=== PATIENT | female | born 1955 | race Native Hawaiian/Other Pacific Islander ===

== ENCOUNTER 2017-01-27 10:47 | Emergency (ER) | payer OTHER ==
[~2017-01-27] VITALS: Ht 167.6 cm; Wt 72.7 kg
[2017-01-27 11:10] VITALS: BP 180/76; PULSE 87; RESP 16; TEMP 98.4; O2SAT 100
--- NOTE | 2017-01-27 11:18 | PD ---
HPI Chief Complaint: Psychiatric Symptoms Time Seen by Provider: 11:13 Travel History International Travel<30 days: No Contact w/Intl Traveler<30days: No Traveled to known affect area: No History of Present Illness HPI 61 year-old female history of anxiety and depression presents to the emergency department under Onofre act for psychiatric evaluation. Patient states that her gave her an ultimatum and she gave him one. She states she was just talking with him and threatening him that she would jump off a bridge, but she did not mean this. She has no suicidal or homicidal ideations. No history suicide attempt. States that she was upset. No other symptoms to report [facility] Past Medical History Anxiety: Yes ?: Not Social History Alcohol Use: No Tobacco Use: No Substance Use: No Allergies-Medications (Allergen,Severity, Reaction): Coded Allergies: No Known Allergies (Unverified , 01/27/17) Reported Meds & Prescriptions Reported Meds & Active Scripts Active Reported Novolog Flexpen Inj (Insulin Aspart) 300 Unit/3 Ml Pen 1 Units SQ Tresiba Flextouch Pen Inj (Insulin Degludec Inj) 600 unit/3 ML Pen 1 Units SQ Atenolol 50 Mg Tab 50 Mg PO BID Norvasc (Amlodipine Besylate) 5 Mg Tab 5 Mg PO DAILY Lisinopril 10 Mg Tab 10 Mg PO DAILY Review of Systems Except as stated in HPI: all other systems reviewed are Neg Physical Exam Narrative GENERAL: Well-nourished, well-developed female patient in no acute distress SKIN: Focused skin assessment warm/dry. Patient has some perioral discoloration , dermatitis, dryness HEAD: Normocephalic. EYES: No scleral icterus. No injection or drainage. NECK: Supple, trachea midline. No JVD or lymphadenopathy. CARDIOVASCULAR: Regular rate and rhythm without murmurs, gallops, or rubs. RESPIRATORY: Breath sounds equal bilaterally. No accessory muscle use. GASTROINTESTINAL: Abdomen soft, non-tender, nondistended. MUSCULOSKELETAL: No cyanosis, or edema. BACK: Nontender without obvious deformity. No CVA tenderness. Data Data Last Documented VS Vital Signs Date Time Temp Pulse Resp B/P (MAP) Pulse Ox O2 Delivery O2 Flow Rate FiO2 01/27/17 16:29 01/27/17 15:34 84 18 98 Room Air 01/27/17 11:10 98.4 Orders Orders Complete Blood Count With Diff (9/12/17 11:17) Basic Metabolic Panel (Bmp) (01/27/17 11:17) Psych Screen (01/27/17 11:17) Drug Screen, Random Urine (01/27/17 11:17) Alcohol (Ethanol) (01/27/17 11:17) Diet Diabetic (01/27/17 Lunch) Psychiatric Precautions-Hbs (01/27/17 12:28) Labs Laboratory Tests Test 01/27/17 11:30 White Blood Count 3.7 TH/MM3 Red Blood Count 4.22 MIL/MM3 Hemoglobin 11.6 GM/DL Hematocrit 34.6 % Mean Corpuscular Volume 82.0 FL Mean Corpuscular Hemoglobin 27.6 PG Mean Corpuscular Hemoglobin Concent 33.7 % Red Cell Distribution Width 14.6 % Platelet Count 233 TH/MM3 Mean Platelet Volume 8.2 FL Neutrophils (%) (Auto) 64.1 % Lymphocytes (%) (Auto) 23.6 % Monocytes (%) (Auto) 11.3 % Eosinophils (%) (Auto) 0.5 % Basophils (%) (Auto) 0.5 % Neutrophils # (Auto) 2.4 TH/MM3 Lymphocytes # (Auto) 0.9 TH/MM3 Monocytes # (Auto) 0.4 TH/MM3 Eosinophils # (Auto) 0.0 TH/MM3 Basophils # (Auto) 0.0 TH/MM3 CBC Comment DIFF FINAL Differential Comment Blood Urea Nitrogen 17 MG/DL Creatinine 1.09 MG/DL Random Glucose 132 MG/DL Calcium Level 8.4 MG/DL Sodium Level 134 MEQ/L Potassium Level 3.8 MEQ/L Chloride Level 102 MEQ/L Carbon Dioxide Level 25.3 MEQ/L Anion Gap 7 MEQ/L Estimat Glomerular Filtration Rate 51 ML/MIN Urine Opiates Screen NEG Urine Barbiturates Screen POS Urine Amphetamines Screen NEG Urine Benzodiazepines Screen POS Urine Cocaine Screen NEG Urine Cannabinoids Screen NEG Ethyl Alcohol Level LESS THAN 3 MG/DL MDM Medical Decision Making Medical Screen Exam Complete: Yes Emergency Medical Condition: Yes Medical Record Reviewed: Yes Differential Diagnosis Mood disorder versus personality disorder versus adjustment reaction disorder Narrative Course 61 year-old female presents to the emergency department for evaluation under Onofre. Patient appears without distress. She is tearful and states that she did not mean which she said to her that she was only upset. Laboratory Tests Test 01/27/17 11:30 White Blood Count 3.7 TH/MM3 Red Blood Count 4.22 MIL/MM3 Hemoglobin 11.6 GM/DL Hematocrit 34.6 % Mean Corpuscular Volume 82.0 FL Mean Corpuscular Hemoglobin 27.6 PG Mean Corpuscular Hemoglobin Concent 33.7 % Red Cell Distribution Width 14.6 % Platelet Count 233 TH/MM3 Mean Platelet Volume 8.2 FL Neutrophils (%) (Auto) 64.1 % Lymphocytes (%) (Auto) 23.6 % Monocytes (%) (Auto) 11.3 % Eosinophils (%) (Auto) 0.5 % Basophils (%) (Auto) 0.5 % Neutrophils # (Auto) 2.4 TH/MM3 Lymphocytes # (Auto) 0.9 TH/MM3 Monocytes # (Auto) 0.4 TH/MM3 Eosinophils # (Auto) 0.0 TH/MM3 Basophils # (Auto) 0.0 TH/MM3 CBC Comment DIFF FINAL Differential Comment Blood Urea Nitrogen 17 MG/DL Creatinine 1.09 MG/DL Random Glucose 132 MG/DL Calcium Level 8.4 MG/DL Sodium Level 134 MEQ/L Potassium Level 3.8 MEQ/L Chloride Level 102 MEQ/L Carbon Dioxide Level 25.3 MEQ/L Anion Gap 7 MEQ/L Estimat Glomerular Filtration Rate 51 ML/MIN Urine Opiates Screen NEG Urine Barbiturates Screen POS Urine Amphetamines Screen NEG Urine Benzodiazepines Screen POS Urine Cocaine Screen NEG Urine Cannabinoids Screen NEG Ethyl Alcohol Level LESS THAN 3 MG/DL Patient is medically cleared to undergo psychiatric screening for further evaluation and disposition. Mental health screening discussed with the patient. Psychiatric screen ordered. 1700. Shy MOORE has evaluated the patient and Onofre act is limited. Patient will be discharged home at this time. Diagnosis Primary Impression: Adjustment disorder Qualified Codes: F43.21 - Adjustment disorder with depressed mood Referrals: Primary Care Physician Patient Instructions: General Instructions, Mood Disorders (ED) Additional Instructions: Follow-up with your primary care provider Return immediately with any acute worsening of symptoms. Med/Other Pt SpecificInfo: No Change to Meds Disposition: 01 DISCHARGE HOME Condition: Stable Doris Garzon Jan 27, 2017 11:18
[2017-01-27] MEDS ORDERED: ATEN50TA PO (11:22)
[2017-01-27] MEDS ORDERED: NOVOINJ3 SQ (11:22)
[2017-01-27] MEDS ORDERED: AMLO5 PO (11:22)
[2017-01-27] MEDS ORDERED: INSU1INJ13 SQ (11:22)
[2017-01-27] MEDS ORDERED: LISI10TA3 PO (11:22)
[2017-01-27 11:51] LABS: AUTOMATED NEUTROPHIL # 2.4 TH/MM3 (1.8-7.7); BASOPHIL % 0.5 % (0.0-2.0); EOSINOPHIL % 0.5 % (0.0-4.0); HEMATOCRIT 34.6 % (35.0-46.0); HEMO FLAGS DIFF FINAL; LYMPH % 23.6 % (9.0-44.0); LYMPHOCYTE # 0.9 TH/MM3 (1.0-4.8); MEAN CORPUSCULAR HEMOGLOBIN 27.6 PG (27.0-34.0); MEAN CORPUSCULAR HGB CONC 33.7 % (32.0-36.0); MONO % 11.3 % (0.0-8.0); NEUT % 64.1 % (16.0-70.0); PLATELET COUNT 233 TH/MM3 (150-450); RED BLOOD COUNT 4.22 MIL/MM3 (4.00-5.30); RED CELL DISTRIBUTION WIDTH 14.6 % (11.6-17.2); WHITE BLOOD COUNT 3.7 TH/MM3 (4.0-11.0)
[2017-01-27 12:00] LABS: ANION GAP 7 MEQ/L (5-15); BICARBONATE 25.3 MEQ/L (21.0-32.0); BLOOD UREA NITROGEN 17 MG/DL (7-18); CHLORIDE 102 MEQ/L (98-107); GLOMERULAR FILTRATION RATE 51 ML/MIN (>89); POTASSIUM 3.8 MEQ/L (3.5-5.1); SODIUM (NA) 134 MEQ/L (136-145)
[2017-01-27 12:02] LABS: ALCOHOL LESS THAN 3 MG/DL (0-5)
--- NOTE | 2017-01-27 13:40 | PD ---
History of Present Illness Chief Complaint: Psychiatric Symptoms Time Seen by Provider: 13:15 Travel History International Travel<30 Days: No Contact w/Intl Traveler<30days: No Known affected area: No Legal Status Legal Status: Onofre Act Onofre Act Signed By: Graciela Castillo History of Present Illness: HPI 61 year old female with no reported psychiatric who is brought under a Onofre act initiated by DAVID. The BA alleges that the patient told her that she was going to jump off a bridge. This in context of a marital and family discord. The patient did not make any attempts at harming herself. There is also a statement by the patient's 20 year old daughter in which she alleges that over the past year her mother has been experiencing episodes of confusion. She was monitored here in [facility] and she presented no behavioral dysregulation and no suicidality. She has been expressing her concern that she has not had any of her diabetic medication since she has been here in ED. Current toxicology is positive for barbiturates as well as benzos. She tells me that she has been taking Valium 5 to 10 mg per day for sleep. She denies any other substance use. The patient's has been called to obtain collateral information. He reports that for the past year she has been more argumentative with him and with the adult children , has good and bad times, He also reports that he found out recently that unbeknownst to him she has been taking his Elavil and was taking #2 of 10 mg twice daily. He was not aware that she also takes Valium. he reports that she is prescribed antidepressants f by her urologist Dr. Medel. The patient is alert and oriented female who is dressed in hospital gown. She is alert and oriented. She is tearful at times. Mood is mildly depressed with impaired sleep. She denies any suicidal or homicidal ideation and states " I am Religion and I would never do that. I was having an argument with my and I used that as a threat. She does not appear to be internally stimulated and she denies any hallucinatory process. She does admit to taking the Valium but that she only takes 10 mg per day. PFSH Past Medical History Diabetes: Yes Patient Takes Glucophage: Yes Hypertension: Yes ?: Not Past Surgical History Surgical History: No Previous Surgery Section: Yes Psychiatric History Psychiatric History Hx Psychiatric Treatment: None reported No previous sucide attempts History of Inpatient Treatment: No Guns or firearms in home: No Social History Born in [place]. 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 Has not worked in 6 years.and she reports that she made the decision to stay home and finish raising her children. Lives with her . has 2 adult children. Hx Alcohol Use: No Hx Tobacco Use: No Hx Substance Use: No Substance Use Type: Benzos (Valium,Xanax) (reports prescribed ) Hx of Substance Use Treatment: No Family Psychiatric History Mother w history of dementia Allergies-Medications (Allergen,Severity, Reaction): Coded Allergies: No Known Allergies (Unverified , 01/27/17) Reported Meds & Prescriptions Reported Meds & Active Scripts Active Reported Novolog Flexpen Inj (Insulin Aspart) 300 Unit/3 Ml Pen 1 Units SQ Tresiba Flextouch Pen Inj (Insulin Degludec Inj) 600 unit/3 ML Pen 1 Units SQ Atenolol 50 Mg Tab 50 Mg PO BID Norvasc (Amlodipine Besylate) 5 Mg Tab 5 Mg PO DAILY Lisinopril 10 Mg Tab 10 Mg PO DAILY Exam Alert: Yes Standish: Person (ox4) Mood: Depressed Affect: Appropriate Speech: Clear, Logical Eye Contact: Normal Memory Intact: Comment (no gross abnormality) Hallucinations: Other (negative) Delusions: No Suicidal: Ideation (denies any) Homicidal: Ideation (denies any) Insight/Judgement Fair. Not impaired [facility] Medical Decision Making Medical Record Reviewed: Yes Assessment/Plan 61 year old female with no reported psychiatric who is brought under a Onofre act initiated by DAVID. The BA alleges that the patient told her that she was going to jump off a bridge. This in context of a marital and family discord. The patient did not make any attempts at harming herself.. The patient has been monitored and has presented no suicidality. There is no psychosis and no sanjana. She is requesting to be discharged. The has been contacted for collateral with her verbal consent. It appears that she may be mixing several medications including Valium, Elavil as well as barbiturates and this may be contributing to her changes in mood as well as to her confusion. It is evident from her description that there is some family issues involving her children leaving for school as they are both away at college. I have informed to contact her PCP as well as to secure his medications for safety purposes. I have advised her regarding overtaking any prescription medication. I have also recommended that she seek treatment on an outpatient basis with a psychiatrist of her choice. At this time and with evidence available she does not meet criteria for Onofre act. The BA is lifted.She is psychiatrically clear for discharge from ED. Orders Orders Complete Blood Count With Diff (01/27/17 11:17) Basic Metabolic Panel (Bmp) (01/27/17 11:17) Psych Screen (01/27/17 11:17) Drug Screen, Random Urine (01/27/17 11:17) Alcohol (Ethanol) (01/27/17 11:17) Diet Diabetic (01/27/17 Lunch) Psychiatric Precautions-Hbs (01/27/17 12:28) Results Vital Signs Date Time Temp Pulse Resp B/P (MAP) Pulse Ox O2 Delivery O2 Flow Rate FiO2 01/27/17 11:14 88 01/27/17 11:10 98.4 87 16 180/76 (110) 100 Laboratory Tests Test 01/27/17 11:30 White Blood Count 3.7 Red Blood Count 4.22 Hemoglobin 11.6 Hematocrit 34.6 Mean Corpuscular Volume 82.0 Mean Corpuscular Hemoglobin 27.6 Mean Corpuscular Hemoglobin Concent 33.7 Red Cell Distribution Width 14.6 Platelet Count 233 Mean Platelet Volume 8.2 Neutrophils (%) (Auto) 64.1 Lymphocytes (%) (Auto) 23.6 Monocytes (%) (Auto) 11.3 Eosinophils (%) (Auto) 0.5 Basophils (%) (Auto) 0.5 Neutrophils # (Auto) 2.4 Lymphocytes # (Auto) 0.9 Monocytes # (Auto) 0.4 Eosinophils # (Auto) 0.0 Basophils # (Auto) 0.0 CBC Comment DIFF FINAL Differential Comment Blood Urea Nitrogen 17 Creatinine 1.09 Random Glucose 132 Calcium Level 8.4 Sodium Level 134 Potassium Level 3.8 Chloride Level 102 Carbon Dioxide Level 25.3 Anion Gap 7 Estimat Glomerular Filtration Rate 51 Urine Opiates Screen NEG Urine Barbiturates Screen POS Urine Amphetamines Screen NEG Urine Benzodiazepines Screen POS Urine Cocaine Screen NEG Urine Cannabinoids Screen NEG Ethyl Alcohol Level LESS THAN 3 Diagnosis Primary Impression: Adjustment disorder Psychiatrically Cleared: Yes Med/ Other Pt Specific Info: No Change to Meds Disposition: 01 DISCHARGE HOME Condition: Stable Problem Qualifiers Primary Impression: Adjustment disorder Qualified Codes: F43.21 - Adjustment disorder with depressed mood Shy Perdue Jan 27, 2017 13:40
[2017-01-27 15:34] VITALS: BP 165/89; PULSE 84; RESP 18; O2SAT 98
== END 2017-01-27 18:18 | disposition home or self-care (01) ==
LOC: NEPD 10:47 → NEPJ 18:18
DX: F43.21 Adjustment disorder with depressed mood (principal); F41.9 Anxiety disorder, unspecified; E11.9 Type 2 diabetes mellitus without complications; I10 Essential (primary) hypertension; Z79.4 Long term (current) use of insulin; Z79.899 Other long term (current) drug therapy
CPT/HCPCS: 80048; 80307; 85025; 99283

== ENCOUNTER 2017-07-09 06:47 | Inpatient (IN) | payer OTHER ==
[~2017-07-09] VITALS: Ht 157.5 cm; Wt 60.9 kg
[2017-07-09] VITALS (13 sets, daily range): BP systolic 134–166; BP diastolic 67–88; PULSE 88–117; RESP 16–19; TEMP 98.4–99.4; O2SAT 98–100
[~2017-07-09 06:47] MED LIST: AMLO5 PO; ATEN50TA PO; INSU1INJ13 SQ; LISI10TA3 PO; NOVOINJ3 SQ
[2017-07-09] MEDS ORDERED: LORA1TAB12 PO (07:10)
[2017-07-09] MEDS ORDERED: SYNT88TA PO (07:11)
--- NOTE | 2017-07-09 07:14 | PD ---
HPI Chief Complaint: GI Complaint Time Seen by Provider: 07:12 Travel History International Travel<30 days: No Contact w/Intl Traveler<30days: No Traveled to known affect area: No History of Present Illness HPI Patient comes in complaining of upper abdominal, epigastric region pain 08/25, present only after about 3 days of having nausea and vomiting as well as diarrhea. Ongoing for the past 2-3 days, she has been attempting to drink Gatorade to stay hydrated, however she continues to have episodes of diarrhea and occasionally vomiting as well. Patient denies any associated factors such as rash, chest pain, back pain, runny nose, sore throat, headache. No known drug allergy Past medical history and surgical history significant for hypertension diabetes anxiety and . PFSH Past Medical History Anxiety: Yes Diabetes: Yes Patient Takes Glucophage: No Diminished Hearing: No Hypertension: Yes Tetanus Vaccination: < 5 Years Influenza Vaccination: Yes Past Surgical History Section: Yes Social History Alcohol Use: No Tobacco Use: No Substance Use: No Allergies-Medications (Allergen,Severity, Reaction): Coded Allergies: No Known Allergies (Unverified Allergy, Unknown, 07/09/17) Reported Meds & Prescriptions Reported Meds & Active Scripts Active Reported Synthroid (Levothyroxine Sodium) 88 Mcg Tab 88 Mcg PO DAILY Lorazepam 1 Mg Tab 1 Mg PO HS PRN Novolog Flexpen Inj (Insulin Aspart) 300 Unit/3 Ml Pen 1 Units SQ Tresiba Flextouch Pen Inj (Insulin Degludec Inj) 600 unit/3 ML Pen 1 Units SQ Atenolol 50 Mg Tab 50 Mg PO BID Norvasc (Amlodipine Besylate) 5 Mg Tab 5 Mg PO DAILY Lisinopril 10 Mg Tab 10 Mg PO DAILY Review of Systems General / Constitutional: No: Fever Eyes: No: Visual changes HENT: No: Headaches Cardiovascular: No: Chest Pain or Discomfort Respiratory: No: Shortness of Breath Gastrointestinal: Positive: Nausea, Vomiting, Diarrhea, Abdominal Pain Genitourinary: No: Dysuria Musculoskeletal: No: Pain Skin: No Rash Neurologic: No: Weakness Psychiatric: No: Depression Endocrine: No: Polydipsia Hematologic/Lymphatic: No: Easy Bruising Physical Exam Narrative GENERAL: SKIN: Warm and dry. HEAD: Atraumatic. Normocephalic. EYES: Pupils equal and round. No scleral icterus. No injection or drainage. ENT: No nasal bleeding or discharge. Mucous membranes pink and moist. NECK: Trachea midline. No JVD. CARDIOVASCULAR: Regular rate and rhythm. RESPIRATORY: No accessory muscle use. Clear to auscultation. Breath sounds equal bilaterally. GASTROINTESTINAL: Abdomen soft, nondistended. MUSCULOSKELETAL: Extremities without clubbing, cyanosis, or edema. No obvious deformities. NEUROLOGICAL: Awake and alert. No obvious cranial nerve deficits. Motor grossly within normal limits. Five out of 5 muscle strength in the arms and legs. Normal speech. PSYCHIATRIC: Appropriate mood and affect; insight and judgment normal. Data Data Last Documented VS Vital Signs Date Time Temp Pulse Resp B/P (MAP) Pulse Ox O2 Delivery O2 Flow Rate FiO2 07/09/17 08:12 88 16 157/70 (99) 99 Room Air 165/79 (107) 07/09/17 06:54 98.4 Orders Orders Electrocardiogram (07/09/17 07:14) Complete Blood Count With Diff (07/09/17 07:14) Comprehensive Metabolic Panel (07/09/17 07:14) Prothrombin Time / Inr (Pt) (07/09/17 07:14) Act Partial Throm Time (Ptt) (07/09/17 07:14) Troponin I (07/09/17 07:14) Lipase (07/09/17 07:14) Ecg Monitoring (07/09/17 07:14) Bilateral Bp Monitoring (07/09/17 07:14) Iv Access Insert/Monitor (07/09/17 07:14) Oximetry (07/09/17 07:14) Oxygen Administration (07/09/17 07:14) Sodium Chlorid 0.9% 500 Ml Inj (Ns 500 M (07/09/17 07:15) Ct Abd/Pel W/O Iv Contrast (07/09/17 07:14) Us Abdomen Gallbladder (07/09/17 ) NPO (07/09/17 07:14) Morphine Inj (Morphine Inj) (07/09/17 07:15) Ondansetron Inj (Zofran Inj) (07/09/17 07:15) Ckmb (Isoenzyme) Profile (07/09/17 08:39) Aspirin Chew (Aspirin Chew) (07/09/17 08:45) Nitroglycerin 2% Oint (Nitroglycerin 2% (07/09/17 08:45) Sodium Chlor 0.9% 1000 Ml Inj (Ns 1000 M (07/09/17 08:39) Consult Cardiology (07/09/17 ) Admit Order (Ed Use Only) (07/09/17 08:53) CKMB (07/09/17 07:41) CKMB% (07/09/17 07:41) Labs Laboratory Tests Test 07/09/17 07:41 White Blood Count 6.6 TH/MM3 Red Blood Count 3.79 MIL/MM3 Hemoglobin 9.6 GM/DL Hematocrit 29.4 % Mean Corpuscular Volume 77.5 FL Mean Corpuscular Hemoglobin 25.3 PG Mean Corpuscular Hemoglobin Concent 32.7 % Red Cell Distribution Width 17.1 % Platelet Count 410 TH/MM3 Mean Platelet Volume 8.0 FL Neutrophils (%) (Auto) 79.4 % Lymphocytes (%) (Auto) 11.4 % Monocytes (%) (Auto) 9.0 % Eosinophils (%) (Auto) 0.0 % Basophils (%) (Auto) 0.2 % Neutrophils # (Auto) 5.3 TH/MM3 Lymphocytes # (Auto) 0.7 TH/MM3 Monocytes # (Auto) 0.6 TH/MM3 Eosinophils # (Auto) 0.0 TH/MM3 Basophils # (Auto) 0.0 TH/MM3 CBC Comment AUTO DIFF Differential Comment AUTO DIFF CONFIRMED Platelet Estimate NORMAL Platelet Morphology Comment NORMAL Prothrombin Time 11.5 SEC Prothromb Time International Ratio 1.1 RATIO Activated Partial Thromboplast Time 26.6 SEC Blood Urea Nitrogen 22 MG/DL Creatinine 0.99 MG/DL Random Glucose 132 MG/DL Total Protein 9.6 GM/DL Albumin 3.7 GM/DL Calcium Level 8.5 MG/DL Alkaline Phosphatase 86 U/L Aspartate Amino Transf (AST/SGOT) 105 U/L Alanine Aminotransferase (ALT/SGPT) 39 U/L Total Bilirubin 0.2 MG/DL Sodium Level 123 MEQ/L Potassium Level 3.5 MEQ/L Chloride Level 90 MEQ/L Carbon Dioxide Level 24.7 MEQ/L Anion Gap 8 MEQ/L Estimat Glomerular Filtration Rate 57 ML/MIN Total Creatine Kinase 3152 U/L Creatine Kinase MB 32.6 NG/ML Creatine Kinase MB % 1.0 % Troponin I 1.21 NG/ML Lipase 103 U/L MDM Medical Decision Making Medical Screen Exam Complete: Yes Emergency Medical Condition: Yes Medical Record Reviewed: Yes Interpretation(s) EKG shows normal sinus rhythm, 91 bpm, incomplete right bundle branch block and P pulmonale pattern, LVH pattern, some motion artifact with wandering baseline no ST elevation type pattern noted however diffuse ST depressions noted Pulse ox: Excellent PLETH wave, pulse ox 97-98 on room air consistent with a normal oximetry Differential Diagnosis Viral versus bacterial gastroenteritis versus pancreatitis versus hepatitis versus biliary colic versus cholecystitis versus cholelithiasis versus appendicitis versus colitis versus diverticulitis Narrative Course CBC shows no leukocytosis, anemia of 9.6/29.4, normal platelet count, neutrophilia mild of 79% Coagulation profile within normal limits Complete metabolic profile shows hyponatremia 123 hypochloremia chloride of 90, some prerenal azotemia BUN of 22 creatinine 1 with a estimated GFR of 57, patient's troponin was also 1.21 with a normal lipase normal LFTs Critical Care Narrative CRITICAL CARE NOTE: With evaluation of the patient, labs, EKG, receipt of radiologic studies, administration of medications, reevaluation the patient and discussion of the patient with the admitting physicians, the total critical care time was [45] minutes. Time to perform other separately billable procedures was not included in the critical care time. Physician Communication Physician Communication Case discussed at length with Dr. Joiner who requested transfer to [facility] and to give heparin and to admit to [facility] with a plan of heart cath Diagnosis Primary Impression: Gastroenteritis Additional Impressions: Hyponatremia Non-STEMI (non-ST elevated myocardial infarction) Admitting Information Admitting Physician Requests: Admit Gordon Rao MD Jul 09, 2017 07:14
[2017-07-09] MEDS ORDERED: MORPHINE SULFATE 4 MG/ML INJ IV PUSH ONE (07:15)
[2017-07-09] MEDS ORDERED: ONDANSETRON HCL 4 MG/2 ML VIAL IVP ONE (07:15)
[2017-07-09] MEDS ORDERED: SODIUM CHLORID 0.9% 500 ML INJ 500 ML IV ONE (07:15)
[2017-07-09 07:46] LABS: AUTOMATED NEUTROPHIL # 5.3 TH/MM3 (1.8-7.7); BASOPHIL % 0.2 % (0.0-2.0); HEMATOCRIT 29.4 % (35.0-46.0); HEMOGLOBIN 9.6 GM/DL (11.6-15.3); LYMPH % 11.4 % (9.0-44.0); LYMPHOCYTE # 0.7 TH/MM3 (1.0-4.8); MEAN CELL VOLUME 77.5 FL (80.0-100.0); MEAN CORPUSCULAR HEMOGLOBIN 25.3 PG (27.0-34.0); MEAN CORPUSCULAR HGB CONC 32.7 % (32.0-36.0); MONOCYTE # 0.6 TH/MM3 (0-0.9); NEUT % 79.4 % (16.0-70.0); PLATELET COUNT 410 TH/MM3 (150-450); RED BLOOD COUNT 3.79 MIL/MM3 (4.00-5.30); RED CELL DISTRIBUTION WIDTH 17.1 % (11.6-17.2); WHITE BLOOD COUNT 6.6 TH/MM3 (4.0-11.0)
[2017-07-09 07:57] LABS: INTERNATIONAL NORMALIZED RATIO 1.1 RATIO; PROTHROMBIN TIME - PATIENT 11.5 SEC (9.8-11.6)
[2017-07-09 08:13] LABS: ALBUMIN 3.7 GM/DL (3.4-5.0); ALKALINE PHOSPHATASE 86 U/L (45-117); ALT (GPT) 39 U/L (10-53); AST (GOT) 105 U/L (15-37); BICARBONATE 24.7 MEQ/L (21.0-32.0); BLOOD UREA NITROGEN 22 MG/DL (7-18); CALCIUM 8.5 MG/DL (8.5-10.1); CHLORIDE 90 MEQ/L (98-107); CREATININE 0.99 MG/DL (0.50-1.00); GLOMERULAR FILTRATION RATE 57 ML/MIN (>89); GLUCOSE,RANDOM 132 MG/DL (74-106); TOTAL BILIRUBIN ADULT 0.2 MG/DL (0.2-1.0); TOTAL PROTEIN 9.6 GM/DL (6.4-8.2)
[2017-07-09 08:29] LABS: SODIUM (NA) 123 MEQ/L (136-145); TROPONIN I 1.21 NG/ML (0.02-0.05)
--- NOTE | 2017-07-09 08:31 | RADRPT ---
EXAM DATE/TIME: 07/09/2017 08:15 [facility] COMPARISON: No previous studies available for comparison. INDICATIONS : Epigastric pain, nausea, vomiting, diarrhea, fever. ORAL CONTRAST: No oral contrast ingested. RADIATION DOSE: 9.46 CTDIvol (mGy) MEDICAL HISTORY : Hypertension. Diabetes mellitus type 2. SURGICAL HISTORY : section. ENCOUNTER: Initial ACUITY: 4 - 6 days PAIN SCALE: 6/10 LOCATION: Bilateral upper quadrant TECHNIQUE: Volumetric scanning of the abdomen and pelvis was performed. Using automated exposure control and ad justment of the mA and/or kV according to patient size, radiation dose was kept as low as reasonably achievable to obtain optimal diagnostic quality images. DICOM format image data is available electro nically for review and comparison. FINDINGS: The limited portion of lung base visualized is clear. Note is made of a moderate sized hiatal hernia. The appearance of the liver, spleen, pancreas, adrenal glands and kidneys is within normal limits by noncontrast imaging. The abdominal aorta is normal in caliber. There is no retroperitoneal lymphadenopathy. The visualized loops of small and large bowel in the upper abdomen are unremarkable. There is no free intraperitoneal air. No free intraperitoneal fluid is identified. There is no free fluid within the pelvis. No iliac or inguinal adenopathy is present. The reproductiv e organs are intact. There is a rotatory scoliosis of the lumbar spine. No destructive lesion is seen. CONCLUSION: 1. Sizable hiatal hernia. 2. No definite abnormality to explain the patient's epigastric pain identified. Wes Prasad MD on July 09, 2017 at 8:27 Board Certified Radiologist. This report was verified electronically.
--- NOTE | 2017-07-09 08:36 | RADRPT ---
EXAM DATE/TIME: 07/09/2017 07:52 [facility] COMPARISON: CT ABDOMEN & PELVIS W/O CONTRAST, July 09, 2017, 8:15. INDICATIONS : Right upper quadrant pain. Nausea and vomiting. MEDICAL HISTORY : Hypertension. Diabetic. SURGICAL HISTORY : section. ENCOUNTER: Initial ACUITY: 3 days PAIN SCORE: 4/10 LOCATION: Right upper quadrant MEASUREMENTS: LIVER: 13.7 cm length COMMON DUCT: 4 mm RIGHT KIDNEY: 10.4 x 4.2 x 6.1 cm FINDINGS: LIVER: Normal echotexture without focal lesion or ductal dilatation. Hepatopedal flow within the portal vein . COMMON DUCT: No intraluminal mass or stone visualized. GALLBLADDER: Contains no stones, demonstrates no wall thickening or pericholecystic fluid. PANCREAS: The visualized portions are within normal limits. RIGHT KIDNEY: No evidence of hydronephrosis, stone, or mass. CONCLUSION: Normal examination. Mike Light Jr., MD on July 09, 2017 at 8:32 Board Certified Radiologist. This report was verified electronically.
[2017-07-09] MEDS ORDERED: SODIUM CHLOR 0.9% 1000 ML INJ 1,000 ML IV SCH (08:39)
[2017-07-09] MEDS ORDERED: ASPIRIN 81 MG CHEW TAB PO ONE (08:45)
[2017-07-09] MEDS ORDERED: NITROGLYCERIN 2% OINT 1 GM PACKET TOP ONE (08:45)
[2017-07-09] MEDS ORDERED: HEPARIN - 10,000 UNITS/ML IV ADDITIVE IV PUSH STA (09:26)
[2017-07-09] MEDS ORDERED: HEPARIN SODIUM - IV 10,000 UNITS/10 ML VIAL IV ONE (10:00)
--- NOTE | 2017-07-09 10:29 | HHI.HP ---
HPI Service [facility] Primary Care Physician Non-Staff Admission Diagnosis NONSTEMI, HYPONATREMIA, GASTROENTERITIS Diagnoses: (1) Non-STEMI (non-ST elevated myocardial infarction) Chief Complaint: Abdominal pain and nausea Travel History International Travel<30 Days: No Contact w/Intl Traveler <30 Da: No Traveled to Known Affected Are: No History of Present Illness This is a pleasant 61-year-old female with a known medical history of anxiety, hypertension, diabetes who presented to the ED with complaints of abdominal pain. Patient states that this epigastric pain started roughly 3 days ago with nausea, vomiting and diarrhea. She states that she went to the outpatient clinic and received a Zofran injection and Phenergan with no relief. Patient states she has not been able to eat for the past 4 days with diarrhea. Does admit to subjective low-grade fevers. States she has had these symptoms in the past 2 years ago. Denies any recent shortness of breath, chest pain. Patient sees Dr. Forbes for cardiology. Review of Systems Constitutional: COMPLAINS OF: Fatigue, Fever, Chills Eyes: DENIES: Blurred vision, Diplopia Respiratory: DENIES: Cough, Sputum production, Shortness of breath Cardiovascular: DENIES: Chest pain, Palpitations Gastrointestinal: COMPLAINS OF: Abdominal pain, Diarrhea, Nausea, Vomiting, DENIES: Black stools, Bloody stools, Constipation Musculoskeletal: DENIES: Joint pain Integumentary: DENIES: Abnormal pigmentation Hematologic/lymphatic: DENIES: Bruising Immunologic/allergic: DENIES: Eczema Neurologic: DENIES: Abnormal gait Psychiatric: COMPLAINS OF: Anxiety Except as stated in HPI: all other systems reviewed are Neg Past Family Social History Past Medical History Thyroid disease Anxiety Diabetes Hypertension Past Surgical History 2 Reported Medications Active Reported Synthroid (Levothyroxine Sodium) 88 Mcg Tab 88 Mcg PO DAILY Lorazepam 1 Mg Tab 1 Mg PO HS PRN Novolog Flexpen Inj (Insulin Aspart) 300 Unit/3 Ml Pen 1 Units SQ Tresiba Flextouch Pen Inj (Insulin Degludec Inj) 600 unit/3 ML Pen 1 Units SQ Atenolol 50 Mg Tab 50 Mg PO BID Norvasc (Amlodipine Besylate) 5 Mg Tab 5 Mg PO DAILY Lisinopril 10 Mg Tab 10 Mg PO DAILY Allergies: Coded Allergies: No Known Allergies (Unverified Allergy, Unknown, 07/09/17) Active Ordered Medications Current Medications Medications (Trade) Dose Ordered Sig/Callie Route Start Time Stop Time Status Last Admin (NS Flush) 2 ml BID IV FLUSH 07/09/17 21:00 (NS Flush) 2 ml UNSCH PRN IV FLUSH 07/09/17 10:45 (Aspirin) 325 mg NOW PO 07/09/17 10:45 07/10/17 10:44 (Nitrostat Sl) 0.4 mg Q5M PRN SL 07/09/17 10:45 (Morphine Inj) 3 mg Q6H PRN IV PUSH 07/09/17 10:45 Heparin Sodium/ Dextrose 250 ml @ 7 mls/hr TITRATE IV 07/09/17 10:45 (Phenergan Supp) 25 mg Q4H PRN RECTAL 07/09/17 15:00 Family History Father had meningitis at the age of 66. Mother is healthy. Social History Denies any tobacco use. Admits to occasional alcohol use. Denies any illicit drug use. Physical Exam Vital Signs Vital Signs Date Time Temp Pulse Resp B/P (MAP) Pulse Ox O2 Delivery O2 Flow Rate FiO2 07/09/17 08:12 88 16 157/70 (99) 99 Room Air 165/79 (107) 07/09/17 07:40 98 Room Air 07/09/17 07:40 98 Room Air 07/09/17 06:54 98.4 95 16 166/77 (106) 100 Physical Exam GENERAL: Well-developed, well-nourished patient in [facility]. SKIN: Warm and dry. No rash. HEAD: Normocephalic. Atraumatic. EYES: Pupils equal and round. No scleral icterus. No injection or drainage. ENT: No nasal bleeding or discharge. Mucous membranes pink and moist. NECK: Supple. Trachea midline. CARDIOVASCULAR: Regular rate and rhythm. S1, S2 noted. No murmur appreciated. No reproducible chest pain. RESPIRATORY: No accessory muscle use. Clear to auscultation. Breath sounds equal bilaterally. GASTROINTESTINAL: Abdomen soft, nondistended. Normoactive bowel sounds x4. Tenderness to palpation MUSCULOSKELETAL: No obvious deformities. Extremities without clubbing, cyanosis , or edema. NEUROLOGICAL: Awake and alert. No obvious cranial nerve deficits. Motor grossly within normal limits. 5/5 muscle strength in bilateral upper and lower extremities. Normal speech. PSYCHIATRIC: Appropriate mood and affect; insight and judgment normal. Laboratory Laboratory Tests Test 07/09/17 07:41 White Blood Count 6.6 Red Blood Count 3.79 Hemoglobin 9.6 Hematocrit 29.4 Mean Corpuscular Volume 77.5 Mean Corpuscular Hemoglobin 25.3 Mean Corpuscular Hemoglobin Concent 32.7 Red Cell Distribution Width 17.1 Platelet Count 410 Mean Platelet Volume 8.0 Neutrophils (%) (Auto) 79.4 Lymphocytes (%) (Auto) 11.4 Monocytes (%) (Auto) 9.0 Eosinophils (%) (Auto) 0.0 Basophils (%) (Auto) 0.2 Neutrophils # (Auto) 5.3 Lymphocytes # (Auto) 0.7 Monocytes # (Auto) 0.6 Eosinophils # (Auto) 0.0 Basophils # (Auto) 0.0 CBC Comment AUTO DIFF Differential Comment AUTO DIFF CONFIRMED Platelet Estimate NORMAL Platelet Morphology Comment NORMAL Prothrombin Time 11.5 Prothromb Time International Ratio 1.1 Activated Partial Thromboplast Time 26.6 Blood Urea Nitrogen 22 Creatinine 0.99 Random Glucose 132 Total Protein 9.6 Albumin 3.7 Calcium Level 8.5 Alkaline Phosphatase 86 Aspartate Amino Transf (AST/SGOT) 105 Alanine Aminotransferase (ALT/SGPT) 39 Total Bilirubin 0.2 Sodium Level 123 Potassium Level 3.5 Chloride Level 90 Carbon Dioxide Level 24.7 Anion Gap 8 Estimat Glomerular Filtration Rate 57 Total Creatine Kinase 3152 Creatine Kinase MB 32.6 Creatine Kinase MB % 1.0 Troponin I 1.21 Lipase 103 Result Diagram: 07/09/1741 07/09/1741 Imaging Last Impressions Abdomen/Pelvis CT 07/09/17 0714 Signed Impressions: Service Date/Time: June 08:15 - CONCLUSION: 1. Sizable hiatal hernia. 2. No definite abnormality to explain the patient's epigastric pain identified. Wes Prsaad MD Gall Bladder Ultrasound 07/09/17 0000 Signed Impressions: Service Date/Time: June 07:52 - CONCLUSION: Normal examination. Mike Light Jr., MD Septic Shock Reassessment Septic shock perfusion: reassessment completed Caprini VTE Risk Assessment Caprini VTE Risk Assessment: Mod/High Risk (score >= 2) Caprini Risk Assessment Model Point Value = 1 Point Value = 2 Point Value = 3 Point Value = 5 Age 41-60 Minor surgery BMI > 25 kg/m2 Swollen legs Varicose veins or History of unexplained or recurrent spontaneous Oral contraceptives or hormone replacement Sepsis (< 1 month) Serious lung disease, including pneumonia (< 1 month) Abnormal pulmonary function Acute myocardial infarction Congestive heart failure (< 1 month) History of inflammatory bowel disease Medical patient at bed rest Age 61-74 Arthroscopic surgery Major open surgery (> 45 min) Laparoscopic surgery (> 45 min) Malignancy Confined to bed (> 72 hours) Immobilizing plaster cast Central venous access Age >= 75 History of VTE Family history of VTE Factor V Leiden Prothrombin [id number] Lupus anticoagulant Anticardiolipin antibodies Elevated serum homocysteine Heparin-induced thrombocytopenia Other congenital or acquired thrombophilia Stroke (< 1 month) Elective arthroplasty Hip, pelvis, or leg fracture Acute spinal cord injury (< 1 month) Prophylaxis Regimen Total Risk Factor Score Risk Level Prophylaxis Regimen 0-1 Low Early ambulation 2 Moderate Order ONE of the following: *Sequential Compression Device (SCD) *Heparin 5000 units SQ BID 3-4 Higher Order ONE of the following medications: *Heparin 5000 units SQ TID *Enoxaparin/Lovenox 40 mg SQ daily (WT < 150 kg, CrCl > 30 mL/min) *Enoxaparin/Lovenox 30 mg SQ daily (WT < 150 kg, CrCl > 10-29 mL/min) *Enoxaparin/Lovenox 30 mg SQ BID (WT < 150 kg, CrCl > 30 mL/min) AND/OR *Sequential Compression Device (SCD) 5 or more Highest Order ONE of the following medications: *Heparin 5000 units SQ TID (Preferred with Epidurals) *Enoxaparin/Lovenox 40 mg SQ daily (WT < 150 kg, CrCl > 30 mL/min) *Enoxaparin/Lovenox 30 mg SQ daily (WT < 150 kg, CrCl > 10-29 mL/min) *Enoxaparin/Lovenox 30 mg SQ BID (WT < 150 kg, CrCl > 30 mL/min) AND *Sequential Compression Device (SCD) Assessment and Plan Problem List: (1) Non-STEMI (non-ST elevated myocardial infarction) ICD Code: I21.4 - Non-ST elevation (NSTEMI) myocardial infarction Status: Acute (2) Gastroenteritis ICD Code: K52.9 - Noninfective gastroenteritis and colitis, unspecified Status: Acute (3) Hyponatremia ICD Code: E87.1 - Hypo-osmolality and hyponatremia Status: Acute Assessment and Plan This is a pleasant 61-year-old female with a known medical history of anxiety, hypertension, diabetes who presented to the ED with complaints of abdominal pain. NSTEMI Abdominal pain with associated nausea, vomiting and diarrhea suspect secondary to above Hyponatremia suspect secondary to above Troponin elevated, 1.21. Follow trend. Cardiology consulted, appreciate recommendations. Will undergo cardiac catheterization today. Sodium 123. Given 1.5 L bolus in ED. Gallbladder ultrasound reviewed showing negative examination. Lipase negative. Abdominal ultrasound reviewed showing hiatal hernia. Phenergan suppository as needed. Continue aspirin. Heparin drip. Control pain, morphine IV available as needed. Supportive care. Hypertension, chronic: BP mildly elevated, continue home medications. Continue to monitor BP trends.accu Type 2 diabetes mellitus, chronic: Accu-Chek before meals at bedtime, sliding scale insulin, cover as needed. Monitor trends. Hypothyroidism, chronic: Continue home Synthroid. DVT prophylaxis: SCDs. Heparin drip. Physician Certification 2 Midnight Certification Type: Admission for Inpatient Services Order for Inpatient Services The services are ordered in accordance with Medicare regulations or non- Medicare payer requirements, as applicable. In the case of services not specified as inpatient-only, they are appropriately provided as inpatient services in accordance with the 2-midnight benchmark. Estimated LOS (days): 2 2 days is the estimated time the patient will need to remain in the hospital, assuming treatment plan goals are met and no additional complications. Post-Hospital Plan: Home Serina Higuera Jul 09, 2017 10:29
[2017-07-09] MEDS ORDERED: HEPARIN-D5W 25,000 U/250 ML 250 ML IV SCH (10:45)
[2017-07-09] MEDS ORDERED: SODIUM CHLORIDE 0.9% FLUSH 10 ML FLUSH IV FLUSH PRN (10:45)
[2017-07-09] MEDS ORDERED: ASPIRIN 325 MG TAB PO SCH (10:45)
[2017-07-09] MEDS ORDERED: MORPHINE SULFATE 8 MG/ML INJ IV PUSH PRN (10:45)
[2017-07-09] MEDS ORDERED: NITROGLYCERIN 0.4 MG SL 25 TABS/BTL SL PRN (10:45)
[2017-07-09] MEDS ORDERED: PROMETHAZINE HCL 25 MG SUPP RECTAL PRN (15:00)
[2017-07-09] MEDS ORDERED: GLUCAGON 1 MG/ML VIAL OTHER PRN (15:15)
[2017-07-09] MEDS ORDERED: DEXTROSE 50% IN WATER 50 ML VIAL(D50) IV PUSH PRN (15:15)
[2017-07-09] MEDS: amLODIPine BESYLATE 5 MG TAB PO SCH (15:22)
[2017-07-09] MEDS: LISINOPRIL 10 MG TAB PO SCH (15:22)
[2017-07-09] MEDS: INSULIN ASPART SUPPLEMENTAL SCALE SQ SCH ×2 (16:45→22:19)
[2017-07-09] MEDS ORDERED: PROCHLORPERAZINE INJ 10 MG/2 ML VIAL IM ONE (17:30)
--- NOTE | 2017-07-09 19:37 | EKG ---
Date Performed: 07/09/2017 Time Performed: 07:29:55 PTAGE: 61 years EKG: Sinus rhythm POSSIBLE LEFT ATRIAL ENLARGEMENT INCOMPLETE RIGHT BUNDLE BRANCH BLOCK MODERATE ST DEPRESSION ABNORMA L ECG NO PREVIOUS TRACING DOCTOR: Sonja Kelley Interpretating Date/Time 07/09/2017 19:37:22
[2017-07-09] MEDS: ATENOLOL 50 MG TAB PO SCH (20:03)
[2017-07-09] MEDS: SODIUM CHLORIDE 0.9% FLUSH 10 ML FLUSH IV FLUSH SCH (21:00)
[2017-07-10] VITALS (22 sets, daily range): BP systolic 121–160; BP diastolic 62–88; PULSE 66–112; RESP 16–18; TEMP 98.4–98.9; O2SAT 97–100
[2017-07-10 04:52] LABS: TROPONIN I 7.28 NG/ML (0.02-0.05)
[2017-07-10 05:57] LABS: AUTOMATED NEUTROPHIL # 3.4 TH/MM3 (1.8-7.7); BASOPHIL % 0.4 % (0.0-2.0); HEMATOCRIT 30.4 % (35.0-46.0); HEMOGLOBIN 10.1 GM/DL (11.6-15.3); LYMPH % 20.5 % (9.0-44.0); MEAN CELL VOLUME 77.1 FL (80.0-100.0); MEAN CORPUSCULAR HEMOGLOBIN 25.5 PG (27.0-34.0); MEAN CORPUSCULAR HGB CONC 33.1 % (32.0-36.0); MONO % 10.5 % (0.0-8.0); MONOCYTE # 0.5 TH/MM3 (0-0.9); NEUT % 68.6 % (16.0-70.0); PLATELET COUNT 416 TH/MM3 (150-450); RED BLOOD COUNT 3.94 MIL/MM3 (4.00-5.30); RED CELL DISTRIBUTION WIDTH 18.3 % (11.6-17.2); WHITE BLOOD COUNT 4.9 TH/MM3 (4.0-11.0)
[2017-07-10] MEDS ORDERED: LEVOTHYROXINE SODIUM 88 MCG TAB PO SCH (06:00)
[2017-07-10 06:14] LABS: BICARBONATE 27.1 MEQ/L (21.0-32.0); CALCIUM 8.7 MG/DL (8.5-10.1); CREATININE 0.83 MG/DL (0.50-1.00)
[2017-07-10] MEDS: INSULIN ASPART SUPPLEMENTAL SCALE SQ SCH ×3 (08:00→17:00)
[2017-07-10] MEDS ORDERED: POTASSIUM CHLORIDE 20 MEQ CONTROLLED RELEASE TAB PO ONE (08:45)
--- NOTE | 2017-07-10 08:57 | PD.CONS ---
HPI Service Cardiology Consult Requested By Hospitalist Reason for Consult NSTEMI Primary Care Physician Non-Staff History of Present Illness Mrs. Farris is a pleasant 61 year old known to Dr. Forbes. She has a history of hypertension, hyperlipidemia, moderate aortic stenosis, diabetes mellitus. She presented to [facility] with 3 day history of abdominal pain, nausea and vomiting. This was unrelieved with zofran or phenergan. She reports 1 week history of shortness of breath with exertion and fatigue. Yesterday morning, she felt worse with fatigue and midsternal chest pain, nausea and vomiting. She called EMS and was transferred to the ED for further evaluation. Initial troponin 1.21. Serial troponin - 0.54, 7.28. EKG with sinus rhythm, non-specific ST-T changes septal, lateral leads. She was placed on heparin drip and transferred to [facility] for cardiac catheterization today. She is currently resting in bed without distress. Denies pain or needs. Her nausea has resolved. at bedside. Review of Systems Consitutional: COMPLAINS OF: Fatigue, DENIES: Fever, Chills, Weight gain, Weight loss Eyes: DENIES: Amaurosis Fugax, Change in vision HEENT: DENIES: Lightheadedness, Change in hearing Respiratory: DENIES: See HPI, Cough, Snoring, Shortness of breath, Wheezing, Sputum production Cardiovascular: COMPLAINS OF: Chest pain, DENIES: See HPI, Palpitations, Syncope, Tachycardia Gastrointestinal: COMPLAINS OF: Nausea, Vomiting, DENIES: Change in bowel habits, Reflux, Bloody stools, Melena Genitourinary: DENIES: Urinary incontinence, Difficulty voiding Integumentary: DENIES: Rash Neurologic: DENIES: Tingling or numbness, Memory problems, Poor Balance, Stroke symptoms Musculoskeletal: DENIES: Joint pain, Muscle pain, Limited range of motion, Back pain Psychiatric: DENIES: Anxiety, Depression, Sleep disturbances Hematologic: DENIES: Bruising tendencies, Bleeding tendencies Endocrine: DENIES: Weight gain, Weight loss, Thyroid disease Past Family Social History Allergies: Coded Allergies: No Known Allergies (Unverified Allergy, Unknown, 07/09/17) Past Medical History Hypertension Hyperlipidemia Moderate DM Depression GERD Anxiety Past Surgical History Reported Medications Reported Meds & Active Scripts Active Reported Synthroid (Levothyroxine Sodium) 88 Mcg Tab 88 Mcg PO DAILY Lorazepam 1 Mg Tab 1 Mg PO HS PRN Novolog Flexpen Inj (Insulin Aspart) 300 Unit/3 Ml Pen 1 Units SQ Tresiba Flextouch Pen Inj (Insulin Degludec Inj) 600 unit/3 ML Pen 1 Units SQ Atenolol 50 Mg Tab 50 Mg PO BID Norvasc (Amlodipine Besylate) 5 Mg Tab 5 Mg PO DAILY Lisinopril 10 Mg Tab 10 Mg PO DAILY Active Ordered Medications Current Medications Medications (Trade) Dose Ordered Sig/Callie Route Start Time Stop Time Status Last Admin (NS Flush) 2 ml BID IV FLUSH 07/09/17 21:00 (NS Flush) 2 ml UNSCH PRN IV FLUSH 07/09/17 10:45 (Aspirin) 325 mg NOW PO 07/09/17 10:45 07/10/17 10:44 (Nitrostat Sl) 0.4 mg Q5M PRN SL 07/09/17 10:45 (Morphine Inj) 3 mg Q6H PRN IV PUSH 07/09/17 10:45 Heparin Sodium/ Dextrose 250 ml @ 7 mls/hr TITRATE IV 07/09/17 10:45 07/09/17 16:45 (Phenergan Supp) 25 mg Q4H PRN RECTAL 07/09/17 15:00 07/09/17 15:58 (Norvasc) 5 mg DAILY PO 07/09/17 15:15 07/09/17 15:22 (Tenormin) 50 mg BID PO 07/09/17 21:00 07/09/17 20:03 (Synthroid) 88 mcg DAILY@0600 PO 07/10/17 06:00 07/10/17 05:31 (Prinivil) 10 mg DAILY PO 07/09/17 15:15 07/09/17 15:22 (D50w (Vial) Inj) 50 ml UNSCH PRN IV PUSH 07/09/17 15:15 (Glucagon Inj) 1 mg UNSCH PRN OTHER 07/09/17 15:15 (NovoLOG SUPPLEMENTAL SCALE) 1 ACHS SLIDING SCALE SQ 07/09/17 17:00 07/09/17 22:19 Family History Mother 93 alive - hypertension Social History 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 Vital Signs Vital Signs Date Time Temp Pulse Resp B/P (MAP) Pulse Ox O2 Delivery O2 Flow Rate FiO2 2/23/18 07:15 98.6 90 16 147/79 (101) 97 07/10/17 06:02 85 07/10/17 05:09 91 07/10/17 04:08 82 07/10/17 03:23 98.9 84 18 133/62 (85) 100 07/10/17 03:00 80 07/10/17 01:00 66 07/10/17 00:00 98.9 66 18 121/70 (87) 100 07/09/17 23:00 107 07/09/17 20:00 117 07/09/17 20:00 98.7 117 18 136/72 (93) 100 07/09/17 18:00 107 07/09/17 17:04 101 07/09/17 16:02 158/71 (100) 07/09/17 16:00 108 07/09/17 15:00 99.0 105 19 162/88 (112) 99 07/09/17 15:00 102 07/09/17 14:18 103 07/09/17 14:02 99.4 100 19 162/76 (104) 100 07/09/17 13:40 07/09/17 11:15 100 16 134/67 (89) 98 Room Air Physical Exam GENERAL: Awake, alert. No distress. SKIN: Warm and dry. HEAD: Atraumatic. Normocephalic. EYES: Pupils equal and round. No scleral icterus. No injection or drainage. ENT: No nasal bleeding or discharge. Mucous membranes pink and moist. NECK: Trachea midline. No JVD. CARDIOVASCULAR: Regular rate and rhythm. Systolic murmur over the aortic valve. RESPIRATORY: No accessory muscle use. Clear to auscultation. Breath sounds equal bilaterally. GASTROINTESTINAL: Abdomen soft, non-tender, nondistended. MUSCULOSKELETAL: Extremities without clubbing, cyanosis, or edema. No obvious deformities. NEUROLOGICAL: Awake and alert. No obvious cranial nerve deficits. Motor grossly within normal limits. Five out of 5 muscle strength in the arms and legs. Normal speech. PSYCHIATRIC: Appropriate mood and affect; insight and judgment normal. Laboratory Laboratory Tests Test 07/09/17 20:52 07/10/17 03:10 07/10/17 04:40 Activated Partial Thromboplast Time 33.1 40.2 Troponin I 0.54 7.28 Total Creatine Kinase 1778 Creatine Kinase MB 26.9 Creatine Kinase MB % 1.5 White Blood Count 4.9 Red Blood Count 3.94 Hemoglobin 10.1 Hematocrit 30.4 Mean Corpuscular Volume 77.1 Mean Corpuscular Hemoglobin 25.5 Mean Corpuscular Hemoglobin Concent 33.1 Red Cell Distribution Width 18.3 Platelet Count 416 Mean Platelet Volume 8.0 Neutrophils (%) (Auto) 68.6 Lymphocytes (%) (Auto) 20.5 Monocytes (%) (Auto) 10.5 Eosinophils (%) (Auto) 0.0 Basophils (%) (Auto) 0.4 Neutrophils # (Auto) 3.4 Lymphocytes # (Auto) 1.0 Monocytes # (Auto) 0.5 Eosinophils # (Auto) 0.0 Basophils # (Auto) 0.0 CBC Comment DIFF FINAL Differential Comment Blood Urea Nitrogen 10 Creatinine 0.83 Random Glucose 107 Calcium Level 8.7 Sodium Level 134 Potassium Level 3.5 Chloride Level 100 Carbon Dioxide Level 27.1 Anion Gap 7 Estimat Glomerular Filtration Rate 70 Result Diagram: 07/10/1743907/10/17439 Assessment and Plan Assessment and Plan NSTEMI Hypertension Hyperlipidemia Moderate Aortic Stenosis Will plan for cardiac catheterization today. The procedure was reviewed in detail with patient and . All questions were answered. She agrees to proceed. Continue aspirin, heparin, beta vikas, DANY-I. Further recommendations per the hospital course. Code Status Full Discussed Condition With Dr. Leidy Hammond,Sandy MOORE Jul 10, 2017 08:56
[2017-07-10] MEDS: SODIUM CHLORIDE 0.9% FLUSH 10 ML FLUSH IV FLUSH SCH (09:00)
[2017-07-10] MEDS: ATENOLOL 50 MG TAB PO SCH (09:04)
[2017-07-10] MEDS: amLODIPine BESYLATE 5 MG TAB PO SCH (09:04)
[2017-07-10] MEDS: LISINOPRIL 10 MG TAB PO SCH (09:04)
[2017-07-10] MEDS ORDERED: MIDAZOLAM HCL 2 MG/2 ML VIAL ONE (12:34)
[2017-07-10] MEDS ORDERED: METOPROLOL TARTRATE 5 MG/5 ML VIAL ONE ×2 (12:49→12:54)
[2017-07-10] MEDS ORDERED: HEPARIN SODIUM - IV 10,000 UNITS/10 ML VIAL ONE (12:58)
--- NOTE | 2017-07-10 13:58 | CATHPROC ---
[employer] HIS Report Study Information Study Number Admission Scheduled Start Study Start [id number] Jul 09 2017 8:56AM 07/09/2017 Jul 10 2017 12:18PM [place] Service Cardiac Catheterization Admit Source Facility Department Emergency department [facility] - Business Line Manager Physician and Clinical Staff Initial Beni Boyd Smoking Pipe Mounter Monica Marsh,RN Recorder Monica Taylor,RT(R) Recorder Madison Posadas RCIS TECH2 Scrub Lucy Hua,RADIOLOGY DIRECTOR TECH2 Procedures Performed Procedure Location (Site) Vessel Name Coronary Angiograms LCA Left Coronary Coronary Angiograms RCA Right Coronary L Heart Cath LV Gram-hand inj. LV LV Ventricle PTCA ADD ON'S Wire insertion Fem Art (right) Femoral Art Equipment Time Cloud Solutions Architect Description Size Mfg Part Number Used/Scraped [id number] 13:26 [employer] WIRE, ASAHI FIELDER XT 300CM 300CM Used *[id number] 13:09 [employer] WIRE, ASAHI FIELDER XT 300CM 300CM Used *[id number] TRANSDUCER, TRUWAVE [id number] 12:49 MACK MARIN * Used W/STOCKCOCK *[id number] 13:00 [employer] WIRE, LUGE 182CM 182CM Used *[id number] INTRODUCER SET, 12:49 [employer] FR 5 [id number] *[id number] Used MICROPUNCTURE, STIFFENED [id number] *[id number] [id number] *[id number] *[id number] 534-621T *[id number] [id number] *[id number] 13:39 DAIG/ST. KOFI MEDICAL ANGIOSEAL, FR6 VIP FR 6 Used *[id number] WIRE, CHOICE PT 300CM PT EX. [id number] 13:04 Meditech 300CM Used SUPP *[id number] 12:49 MEDLINE INDUSTRIES PACK, CCL CUSTOM * Used *[id number] 12:49 MEDLINE PACER PEN, SKIN DUAL W/ RULER * Used *[id number] BALLOON, 1.25 X 15MM [id number] 13:17 MEDTRONIC 15MM Used SPRINTER LEGEND OTW *[id number] 13:14 [employer] BALLOON, 1.5 X 6MM SPRINTER 6MM Used *[id number] [id number] 12:59 [employer] 30 ROSALINDA INDEFLATOR Used *[id number] 12:49 [employer] MEDICAL SHEATH, FR6.5 PRELUDE 11CM FR 6.5 038ACT Used *[id number] 12:49 theBench WIRE, 3MMJ .035 180CM 180CM Used *[id number] 12:49 NAMIC MANIFOLD, 4 PORT * Used *[id number] 12:49 NAMIC TUBING, HIGH PRESSURE 20" 20" Used *[id number] 13:48 NAMIC TUBING, HIGH PRESSURE 20" 20" Used *[id number] 12:49 [employer]COMED OMNIPAQUE, 350 MG, 150ML 150ML [id number] Used 13:00 [employer]ED OMNIPAQUE, 350 MG, 50ML 50ML [id number] Used [id number] 12:49 [facility] BLANKET,WARM AIR CCL * Used *[id number] Equipment Model, Serial, Lot Number and Expiration Data Description Model Number Serial Number Lot Number Expiration Date ANGIOSEAL, FR6 VIP [id number] 03-17-2018 WIRE, CHOICE PT 300CM PT EX. [id number] 06-13-2018 SUPP History: Current Medications Medication Dosage/Unit Route Frequency Last Date/Time Taken LISINOPRIL NORVASC Beta Petr Insulin Synthroid History: Allergies Allergy Reaction No Known Allergies History: Risk Factors Family History of Hypertension Dyslipidemia Previous GA Previous Heart Failure Premature CAD Yes No No No Yes Prior Valve Prior PCI Prior CABG Surgery No No No Cerebrovascular Peripheral Artery Chronic Lung On Dialysis Diabetes Diabetes Therapy Disease Disease Disease No No No No Yes Insulin History: Symptoms/Diagnosis Selection Items Chest pain History: Stress Tests Stress or Imaging Studies Performed No History: Other Disease Selection Items HTN History: Other Current Smoker No Labs Hgb (g/dl) Hct (%) RBC (MIL/MM3) WBC (l/cumm) Platelets (thousands) 11.60-17.00 35.00-51.00 4.00-5.90 4.00-11.00 150.00-450.00 10.1 30.4 3.7 4.9 416 Glucose (mg/dl) BUN (mg/dl) Creatinine (mg/dl) BUN:Creatinine (1:x) 74.00-106.00 7.00-18.00 0.50-1.30 10.00-20.00 107 10 0.8 12.5 Na (meq/l) K (meq/l) Cl (meq/l) CO2 (mmol/L) Ca (mg/dl) 136.00-145.00 3.50-5.10 98.00-107.00 21.00-32.00 8.50-10.10 134 3.5 100 27.1 8.7 INR (PTT:PT) 0.90-1.10 1.1 Troponin I (ng/ml) CPK (u/l) CPK-MB (ng/ML) 0.02-0.05 26.00-308.00 0.50-3.60 7.28 1778 26.9 Medication Medication Total Dose (Bolus/Oral) Medication Total Dosage/Unit 1% XYLOCAINE 20 mL FENTANYL 100 mcg HEPARIN 5600 units LOPRESSOR 10 mg VERSED 0.5 mg Medications (Bolus/Oral) Medication Time Given Dosage/Unit Administered By Reason VERSED 07/10/2017 12:37:18 PM 0.5 mg Hesher, Monica 0.5 mg VERSED given in lab by Monica Marsh RN in Left Antecubital via Peripheral IV. FENTANYL 07/10/2017 12:38:40 PM 50 mcg Salma, Monica 50 mcg FENTANYL given in lab by Monica Marsh RN in Left Antecubital via Peripheral IV. 1% XYLOCAINE 07/10/2017 12:46:46 PM 20 mL [place] Beni 20 mL 1% XYLOCAINE given in lab by Beni Forbes in Right Groin via Subcutaneous. LOPRESSOR 07/10/2017 12:50:34 PM 2.5 mg Hesher, Monica 2.5 mg LOPRESSOR given in lab by Monica Marsh RN in Left Antecubital via Peripheral IV. LOPRESSOR 07/10/2017 12:53:52 PM 2.5 mg Hesher, Monica 2.5 mg LOPRESSOR given in lab by Monica Marsh RN in Left Antecubital via Peripheral IV. LOPRESSOR 07/10/2017 12:55:41 PM 2.5 mg Hesher, Monica 2.5 mg LOPRESSOR given in lab by Monica Marsh RN in Left Antecubital via Peripheral IV. HEPARIN 07/10/2017 12:59:38 PM 5600 units Lamin Marshon 5600 units HEPARIN given in lab by Monica Marsh, WALLACE via Peripheral IV. FENTANYL 07/10/2017 1:40:44 PM 50 mcg Monica Marsh 50 mcg FENTANYL given in lab by Monica Marsh RN via Peripheral IV. LOPRESSOR 07/10/2017 1:43:07 PM 2.5 mg Monica Marsh 2.5 mg LOPRESSOR given in lab by Monica Marsh RN in Left Antecubital via Peripheral IV. Initial Case Assessment Cardiovascular HR Rhythm NIBP Chest Pain [address] st 171/91 0 Edema Present Skin color Skin None Normal Warm Dry Circulatory - Right Pulses Dorsalis Pedis Femoral 2 2 Scale (0,1,2,3,4,d) Circulatory - Left Pulses Dorsalis Pedis Femoral 1 2 Scale (0,1,2,3,4,d) Circulatory - Lower Extremities Color Lower Right Color Lower Left Normal Normal Neurological State Oriented to time-place- Alert Moves all extremities person Respiration - General Respiration Rate SpO2 (%) (B/min) 20 100 Final Case Assessment Cardiovascular HR Rhythm NIBP Chest Pain 94 reg 161/8 0 Edema Present Skin color Skin None Normal Warm Circulatory - Right Pulses Dorsalis Pedis Femoral 2 2 Scale (0,1,2,3,4,d) Circulatory - Left Pulses Dorsalis Pedis Femoral 1 2 Scale (0,1,2,3,4,d) Circulatory - Lower Extremities Color Lower Right Color Lower Left Normal Normal Neurological State Oriented to time-place- Alert Moves all extremities person Respiration - General Respiration Rate SpO2 (%) O2 (lpm) (B/min) 14 97 2 Chronological Log Time Study Chronological Log 12:24:44 Patient arrived via Bed. 12:24:48 Patient Name, D.O.B, / Armband Verified By R.N. 12:25:52 Consent signed by the physician and the patient and verified by the Business Line Manager staff. 12:25:53 Pre-op and post- op instructions given; patient acknowledges understanding of instructions. 12:25:54 Verbal Stimulation=2 Physical Stimulation=2 Airway=2 Respiration=2 TOTAL=8. (0=absent, 1=li mited, 2=present) 12:26:12 Presedation assessment performed by Business Line Manager RN. 12:30:39 MD arrived. Vitals capture started with the following parameters, Patient=Adult, Interval=5 min, Initial Pr ysabfa=855 mmHg, 12:32:25 Deflation Rate=5 mmHg, Cuff placed on Left Arm 12:33:23 XY=214 bpm, XWGC=043/91 mmhg, TlK0=739.0 %, Resp=20 B/min, Pain=0, Lizandro=10, Bernal=2 12:34:27 Reference ECG taken 12:34:57 Allens test performed on the right radial and ulnar artery. 12:35:01 Patient has been NPO for More than 6Hrs. 12:35:06 Skin Breakdown-none 12:35:10 Charles Prominences Protected 12:35:14 Bilateral groins prepped with 2% chlorhexidine, and draped after a 3 minute waiting time. 12:35:14 A # 20 IV was noted in the Antecubital (left). Grade = patent Assessment: Initial Case, YE=477 BPM, Rhythm=st, WNWD=762/91 mmhg, Chest Pain=0, Edema=None, Co juana=Normal, Skin = Warm, Dry Right Pulses: Jaime Ped=2, Femoral=2 Left Pulses: Jaime Ped=1, Femoral=2 12:36:06 Lower Right Extremities: Color=Normal Lower Left Extremities: Color=Normal Neurological: State=Alert, Ox3, SIFUENTES Respiration: Resp=20 B/min, IfI6=910 % 12:37:18 0.5 mg VERSED given in lab by Monica Marsh, WALLACE in Left Antecubital via Peripheral IV. 12:38:03 HH=417 bpm, HZKP=733/93 mmhg, QjV3=231.0 %, Resp=11 B/min, Pain=0, Lizandro=10, Bernal=2 12:38:40 50 mcg FENTANYL given in lab by Monica Marsh, WALLACE in Left Antecubital via Peripheral IV. 12:40:58 Pressure channel 1 zeroed. 12:43:04 FE=106 bpm, XNXL=186/80 mmhg, SvT6=946.0 %, Resp=14 B/min, Pain=0, Lizandro=10, Bernal=2 Time Out. Correct patient, correct procedure, correct physician, power injector not loaded with contrast with surgical 12:43:44 team present. Time Out Concurred by MD and individual staff in procedure. 12:44:30 Case Start 12:44:32 Verbal Stimulation=2 Physical Stimulation=2 Airway=2 Respiration=2 TOTAL=8. (0=absent, 1=li mited, 2=present) 12:46:46 20 mL 1% XYLOCAINE given in lab by Beni Forbes in Right Groin via Subcutaneous. 12:47:47 discontinued heparin at 12:19 in patients room 12:48:01 AD=128 bpm, EAUO=347/85 mmhg, LfN3=800.0 %, Resp=19 B/min, Pain=0, Lizandro=10, Bernal=2 12:48:19 Access site was Right Femoral Artery with MP kit and ultrasound device 12:48:46 A wire was inserted via Fem Art (right). 12:48:48 A SHEATH, FR6.5 PRELUDE 11CM FR 6.5 was advanced into the Fem Art (right) using the Percuta neous technique. A JL 4.0 INFINITI CATHETER FR 6 was advanced over a wire. OMNIPAQUE, 350 MG, 150ML 150ML was us ed for 12:49:21 injections. Recorded Pressure: Ao, EA=618, Condition=Condition 1 12:50:25 (Aorta) Ao 167/56/109 12:50:34 2.5 mg LOPRESSOR given in lab by Monica Marsh RN in Left Antecubital via Peripheral IV. 12:51:59 The LCA was injected and visualized at various angles. OMNIPAQUE, 350 MG, 150ML 150ML used . After removing the current catheter a JL 3.5 INFINITI CATHETER FR 6 was advanced over a WIRE, 3 MMJ .035 180CM 12:52:22 180CM. 12:53:03 LI=387 bpm, HAUK=796/89 mmhg, SpO2=99.0 %, Resp=13 B/min, Pain=0, Lizandro=10, Bernal=2 12:53:52 2.5 mg LOPRESSOR given in lab by Monica Marsh, WALLACE in Left Antecubital via Peripheral IV. After removing the current catheter a JR 4.0 INFINITI CATHETER FR 6 was advanced over a WIRE, 3 MMJ .035 180CM 12:55:16 180CM. 12:55:41 2.5 mg LOPRESSOR given in lab by Monica Marsh RN in Left Antecubital via Peripheral IV. 12:55:47 ACT (Normal Range 90-180) = 153 12:57:08 The RCA was injected and visualized at various angles. OMNIPAQUE, 350 MG, 150ML 150ML used . 12:58:04 HR=99 bpm, YUMM=215/88 mmhg, FlN4=738.0 %, Resp=18 B/min, Pain=0, Lizandro=10, Bernal=2 After removing the current catheter a JR 4.0 GUIDE CATHETER FR 6 was advanced over a WIRE, 3MMJ .035 180CM 12:58:15 180CM. 12:59:07 OMNIPAQUE, 350 MG, 50ML 50ML and 30 ROSALINDA INDEFLATOR added. 12:59:38 5600 units HEPARIN given in lab by Monica Marsh RN via Peripheral IV. 12:59:43 A WIRE, LUGE 182CM 182CM was inserted via Fem Art (right). 13:03:07 HR=96 bpm, HZVN=462/81 mmhg, RxD8=066.0 %, Resp=20 B/min, Pain=0, Lizandro=10, Bernal=2 13:04:05 The previous wire was exchanged for a WIRE, CHOICE PT 300CM PT EX. SUPP 300CM. A BALLOON, 1.25 X 15MM SPRINTER LEGEND OTW 15MM was inserted over WIRE, CHOICE PT 300CM PT EX. SUPP 13:05:21 300CM via the RCA Mid. 13:08:02 HR=97 bpm, FKDJ=090/96 mmhg, ExG3=966.0 %, Resp=16 B/min, Pain=0, Lizandro=10, Bernal=2 13:09:00 The previous wire was exchanged for a WIRE, OrexoER XT 300CM 300CM. 13:11:45 ACT (Normal Range 90-180) = 298 13:13:07 HR=97 bpm, HROL=375/88 mmhg, SpO2=99.0 %, Resp=20 B/min, Pain=0, Lizandro=10, Bernal=2 The previous balloon catheter was replaced by a BALLOON, 1.25 X 15MM SPRINTER LEGEND OTW 15MM o serg a WIRE, 13:13:41 ASAHI FIELDER XT 300CM 300CM. 13:18:04 HR=96 bpm, LFQY=470/99 mmhg, ZsY4=849.0 %, Resp=10 B/min, Pain=0, Lizandro=10, Bernal=2 13:18:55 The previous wire was exchanged for a WIRE, CHOICE PT 300CM PT EX. SUPP 300CM. 13:20:17 The previous wire was exchanged for a WIRE, Realty M[employer]ul FIELDER XT 300CM 300CM. 13:21:42 The RCA was injected and visualized at various angles. OMNIPAQUE, 350 MG, 150ML 150ML used . 13:23:07 HR=97 bpm, YRHP=019/93 mmhg, ZyF8=960.0 %, Resp=10 B/min, Pain=0, Lizandro=10, Bernal=2 13:23:42 Wire removed 13:23:49 The previous wire was exchanged for a WIRE, Realty [employer] FIELDER XT 300CM 300CM. 13:26:11 The previous wire was exchanged for a WIRE, Realty [employer] FIELDER XT 300CM 300CM. new fielder 13:28:06 QS=805 bpm, GQPP=260/93 mmhg, HnC4=586.0 %, Resp=17 B/min, Pain=0, Lizandro=10, Bernal=2 13:31:36 Wire removed 13:31:41 Balloon Removed. 13:31:59 The RCA was injected and visualized at various angles. OMNIPAQUE, 350 MG, 150ML 150ML used . A PIGTAIL STR INFINITI CATHETER FR 6 was advanced over a wire. OMNIPAQUE, 350 MG, 150ML 150ML w as used for 13:32:49 injections. 13:33:07 HR=95 bpm, MEGS=255/88 mmhg, SpO2=98.0 %, Resp=20 B/min, Pain=0, Lizandro=10, Bernal=2 Recorded Pressure: LV, HR=96, Condition=Condition 1 13:33:59 (Left Ventricle) LV 192/5/18 13:34:39 The LV was manually injected with 10 cc's and visualized. OMNIPAQUE, 350 MG, 150ML 150ML us ed. 13:35:03 NIBP STAT measurement started. 13:35:39 HR=96 bpm, WAPO=962/86 mmhg, SpO2=99.0 %, Resp=20 B/min, Pain=0, Lizandro=10, Bernal=2 Recorded Pressure: LV, Ao, HR=97, Condition=Condition 1 13:35:40 (Left Ventricle) LV 187/0/10, (Aorta) Ao 170/44/104 13:37:42 Pressure channel 2 zero failed. 13:37:55 Pressure channel 2 zeroed. Recorded Pressure: LV, Ao, Ao, HR=93, Condition=Condition 1 (Left Ventricle) LV 197/5/15, 13:38:06 (Aorta) Ao 196/6/94, (Aorta) Ao 160/66/101 13:38:08 HR=92 bpm, EMAK=914/87 mmhg, SpO2=97.0 %, Resp=8 B/min, Pain=0, Lizandro=10, Bernal=2 Recorded Pressure: LV, Ao, Ao, HR=98, Condition=Condition 1 (Left Ventricle) LV 186/6/3, 13:38:26 (Aorta) Ao 188/5/90, (Aorta) Ao 175/77/117 Recorded Pressure: LV, Ao, Ao, HR=95, Condition=Condition 1 (Left Ventricle) LV 193/5/12, 13:38:34 (Aorta) Ao 180/52/114, (Aorta) Ao 183/81/122 Recorded Pressure: LV, Ao, Ao, HR=96, Condition=Condition 1 (Left Ventricle) LV 179/84/89, 13:38:43 (Aorta) Ao 176/81/123, (Aorta) Ao 183/83/122 13:39:36 An injection in the Fem Art (right) was made through the SHEATH, FR6.5 PRELUDE 11CM FR 6.5 . 13:39:45 A WIRE, 3MMJ .035 180CM 180CM was inserted via Fem Art (right). 13:40:44 50 mcg FENTANYL given in lab by Monica Marsh, WALLACE via Peripheral IV. Assessment: Final Case, HR=94 BPM, Rhythm=reg, SFYL=653/8 mmhg, Chest Pain=0, Edema=None, [place] r=Normal, Skin = Warm Right Pulses: Jaime Ped=2, Femoral=2 Left Pulses: Jaime Ped=1, Femoral=2 13:41:43 Lower Right Extremities: Color=Normal Lower Left Extremities: Color=Normal Neurological: State=Alert, Ox3, SIFUENTES Respiration: Resp=14 B/min, SpO2=97 %, O2=2 lpm 13:42:09 Catheter(s) removed without difficulty 13:42:11 ANGIOSEAL, FR6 VIP FR 6 placement in the Fem Art (right) 13:43:07 HR=92 bpm, CEIU=650/92 mmhg, SpO2=95.0 %, Resp=15 B/min, Pain=0, Lizandro=10, Bernal=2 13:43:07 2.5 mg LOPRESSOR given in lab by Monica Marsh, RN in Left Antecubital via Peripheral IV. 13:43:26 Sterile dressing applied to site 13:43:28 Case End 13:43:29 No case complications noted. 13:43:30 Case complication noted. 13:43:31 Cine recording checked. 13:43:33 Bedside Report will be given. 13:43:41 A Left Heart Cath was performed. 13:43:43 Clinical correlaton risk stratification. 13:48:08 HR=94 bpm, JYBE=576/91 mmhg, SpO2=97.0 %, Resp=10 B/min, Pain=0, Lizandro=10, Bernal=2 13:53:07 HR=93 bpm, SOHY=505/95 mmhg, SpO2=98.0 %, Resp=13 B/min, Pain=0, Lizandro=10, Bernal=2 13:58:08 HR=91 bpm, AVGQ=987/91 mmhg, SpO2=97.0 %, Resp=15 B/min, Pain=0, Lizandro=10, Bernal=2 End Study - Contrast Media Used In Study Contrast Total Opened (mL) Total Used (mL) Total Wasted (mL) Omnipaque 100 100 0 End Study - Maximum Contrast Load Max Contrast Load (mL) 387.5 End Study - Radiation Exposure Fluoro Time (minutes) 22.7 End Study - Sheaths Sheaths Pulled By Sheath Hold Time (min) [place], Beni End Study - Patient Disposition Complications Transferred To Interventional Outcome No Regular Bed unsuccessful
--- NOTE | 2017-07-10 14:35 | EKG ---
Date Performed: 07/09/2017 Time Performed: 22:36:08 PTAGE: 61 years EKG: Sinus rhythm . rSr'(V1) - probable normal variant Septal and lateral ST-T changes are nonspecific Borderline ECG PREVIOUS TRACING 07/09/17 @ 07.29 Since the prior tracing, there has been no significant change DOCTOR: Cindy Roth Interpretating Date/Time 07/10/2017 14:33:29
[2017-07-10] MEDS ORDERED: ENALAPRILAT 1.25 MG/ML VIAL IV PUSH PRN (15:00)
[2017-07-10] MEDS ORDERED: IOHEXOL 350 MG/ML 100 ML BTL (for Cath Lab) OTHER ONE (15:52)
--- NOTE | 2017-07-10 16:03 | MA ---
cc: KAREN PHILLIPS MD DATE: 07/10/2017. PROCEDURES PERFORMED: Coronary angiogram, left ventriculogram and attempted PCC of the totally occluded right coronary artery. COMPLICATIONS: None. ESTIMATED BLOOD LOSS: Less than 5 cc. DESCRIPTION OF THE PROCEDURE IN DETAIL: After informed consent and discussion of risks and benefits, a 6-Lithuanian sheath was placed under ultrasound guidance to the right common femoral artery. Coronary angiography was performed using standard sized Speedy catheters. A pigtail catheter was used for ventriculography. The patient tolerated the procedure well. There were no complications. HEMODYNAMIC RESULTS: LV pressure was 190/12. Aortic pressure was 178/70. There was a 14 mm saqj-lv-desx gradient across the aortic valve. LEFT VENTRICULOGRAM: Left ventriculogram was performed in the standard HANEY projection and showed ejection fraction of 60%. CORONARY ANGIOGRAPHY: The left main is free of significant disease. The left anterior descending artery has a 30% to 40% plaquing in the proximal portion. The circumflex has a diffuse 50% to 60% stenosis on a marginal in an acute bend. The right coronary artery is totally occluded with some collateralization. Given the patient's acute troponin rise, we decided to intervene on the right to see whether this was fresh thrombus. The patient was anticoagulated with therapeutic ACT. A JR-4 was placed up and over. We tried to get across with a luge and a Choice PT extra support but the plaque felt more like a chronic total occlusion. I did get across with a filter wire but was unable to pass even a 1.5 balloon. While trying to exchange for a 1.25 balloon, we lost wire access and I was not able to re-wire the 1.25 using the same filter wire and the zyga-kqx-vuxx system. We decided to terminate the procedure given the fluoro time, radiation and contrast used. The patient was asymptomatic. Will treat medically. Further recommendations to follow the hospital course. MD LUCI Montejo/BRONSON /1:46 PM /3:45 PM
--- NOTE | 2017-07-10 16:37 | HHI.DS ---
Discharge Summary Admission Date Jul 09, 2017 at 08:56 Discharge Date: Jul 10, 2017 Admitting Diagnosis NONSTEMI, HYPONATREMIA, GASTROENTERITIS (1) Non-STEMI (non-ST elevated myocardial infarction) ICD Code: I21.4 - Non-ST elevation (NSTEMI) myocardial infarction Diagnosis: Principal Status: Acute (2) Gastroenteritis ICD Code: K52.9 - Noninfective gastroenteritis and colitis, unspecified Diagnosis: Principal Status: Acute (3) Hyponatremia ICD Code: E87.1 - Hypo-osmolality and hyponatremia Diagnosis: Principal Status: Acute Procedures Heart Cath Brief History - From Admission This is a pleasant 61-year-old female with a known medical history of anxiety, hypertension, diabetes who presented to the ED with complaints of abdominal pain. Patient states that this epigastric pain started roughly 3 days ago with nausea, vomiting and diarrhea. She states that she went to the outpatient clinic and received a Zofran injection and Phenergan with no relief. Patient states she has not been able to eat for the past 4 days with diarrhea. Does admit to subjective low-grade fevers. States she has had these symptoms in the past 2 years ago. Denies any recent shortness of breath, chest pain. Patient sees Dr. Forbes for cardiology. CBC/BMP: 07/10/17 0440 07/10/17 0440 Significant Findings Laboratory Tests Test 07/09/17 07:41 07/09/17 20:52 07/10/17 03:10 07/10/17 04:40 Red Blood Count 3.79 MIL/MM3 (4.00-5.30) 3.94 MIL/MM3 (4.00-5.30) Hemoglobin 9.6 GM/DL (11.6-15.3) 10.1 GM/DL (11.6-15.3) Hematocrit 29.4 % (35.0-46.0) 30.4 % (35.0-46.0) Mean Corpuscular Volume 77.5 FL (80.0-100.0) 77.1 FL (80.0-100.0) Mean Corpuscular Hemoglobin 25.3 PG (27.0-34.0) 25.5 PG (27.0-34.0) Neutrophils (%) (Auto) 79.4 % (16.0-70.0) Monocytes (%) (Auto) 9.0 % (0.0-8.0) 10.5 % (0.0-8.0) Lymphocytes # (Auto) 0.7 TH/MM3 (1.0-4.8) Blood Urea Nitrogen 22 MG/DL (7-18) Random Glucose 132 MG/DL (74-106) 107 MG/DL (74-106) Total Protein 9.6 GM/DL (6.4-8.2) Aspartate Amino Transf (AST/SGOT) 105 U/L (15-37) Sodium Level 123 MEQ/L (136-145) 134 MEQ/L (136-145) Chloride Level 90 MEQ/L (98-107) Estimat Glomerular Filtration Rate 57 ML/MIN (>89) 70 ML/MIN (>89) Total Creatine Kinase 3152 U/L (26-192) 1778 U/L (26-192) Creatine Kinase MB 32.6 NG/ML (0.5-3.6) 26.9 NG/ML (0.5-3.6) Troponin I 1.21 NG/ML (0.02-0.05) 0.54 NG/ML (0.02-0.05) 7.28 NG/ML (0.02-0.05) Activated Partial Thromboplast Time 33.1 SEC (24.3-30.1) 40.2 SEC (24.3-30.1) Red Cell Distribution Width 18.3 % (11.6-17.2) Hospital Course Mrs. Farris is a 61 year old female. She came in to the ER secondary to nausea/ vomiting. Preliminary work up showed elevated troponins, so a cardiac etiology became a concern. She had a heart cath today which shows mild disease, but no disease significant enough to warrant stent or to explain her symptoms. Her nausea and vomiting have resolved. Troponin elevation may be related to inflammation from a viral illness. Hyponatremia was present initially (she has a chronic problem with hyponatremia), but has improved with resolution of her nausea/vomiting. Medically stable and clear for discharge after bedrest status post heart cath is completed. Pt Condition on Discharge: Stable Discharge Disposition: Discharge Home Discharge Time: <= 30 minutes Discharge Instructions DIET: Follow Instructions for: As Tolerated, No Restrictions Additional Diet Instructions: Include salt in diet Activities you can perform: Regular-No Restrictions Follow up Referrals: PCP Follow-up - 2 Weeks Continued Medications: Amlodipine (Norvasc) 5 Mg Tab 5 MG PO DAILY for Blood Pressure Management, #30 TAB 0 Refills Atenolol (Atenolol) 50 Mg Tab 50 MG PO BID for Blood Pressure Management, #60 TAB 0 Refills Insulin Aspart Inj (Novolog Flexpen Inj) 300 Unit/3 Ml Pen 1 UNITS SQ for Blood Sugar Management, #1 PEN 0 Refills Insulin Degludec Inj (Tresiba Flextouch Pen Inj) 600 unit/3 ML Pen 1 UNITS SQ for Blood Sugar Management, #9 ML 0 Refills Levothyroxine (Synthroid) 88 Mcg Tab 88 MCG PO DAILY for Thyroid, #30 TAB 0 Refills Lisinopril (Lisinopril) 10 Mg Tab 10 MG PO DAILY, #30 TAB 0 Refills Lorazepam (Lorazepam) 1 Mg Tab 1 MG PO HS PRN for ANXIETY AND/OR INSOMNIA, TAB 0 Refills Wes Abrams MD Jul 10, 2017 16:37
[2017-07-10] MEDS ORDERED: LORazepam 0.5 MG TAB PO PRN (17:45)
[2017-07-10] MEDS ORDERED: METOPROLOL TARTRATE 50 MG TAB PO SCH (18:00)
== END 2017-07-10 20:15 | disposition left against medical advice (07) | DRG 281 ==
LOC: PHED 06:47 → PHEDA 08:56 → HCIS 13:59
PROVIDERS: ADMIT Hospitalist; ATTEND Hospitalist
PROC: 4A023N7 Measurement of Cardiac Sampling and Pressure, Left Heart, Percutaneous Approach (ICD-10-PCS; principal; 2017-07-09)
PROC: B2111ZZ Fluoroscopy of Multiple Coronary Arteries using Low Osmolar Contrast (ICD-10-PCS; 2017-07-09)
PROC: B2151ZZ Fluoroscopy of Left Heart using Low Osmolar Contrast (ICD-10-PCS; 2017-07-09)
DX: I21.4 Non-ST elevation (NSTEMI) myocardial infarction (principal); E87.1 Hypo-osmolality and hyponatremia; E87.8 Other disorders of electrolyte and fluid balance, not elsewhere classified; I97.610 Postprocedural hemorrhage of a circulatory system organ or structure following a cardiac catheterization; K52.9 Noninfective gastroenteritis and colitis, unspecified; I10 Essential (primary) hypertension; E11.9 Type 2 diabetes mellitus without complications; R79.89 Other specified abnormal findings of blood chemistry; E03.9 Hypothyroidism, unspecified; K44.9 Diaphragmatic hernia without obstruction or gangrene; I35.0 Nonrheumatic aortic (valve) stenosis; E78.5 Hyperlipidemia, unspecified; K21.9 Gastro-esophageal reflux disease without esophagitis; F32.9 Major depressive disorder, single episode, unspecified; F41.9 Anxiety disorder, unspecified; Y84.0 Cardiac catheterization as the cause of abnormal reaction of the patient, or of later complication, without mention of misadventure at the time of the procedure; Y92.239 Unspecified place in hospital as the place of occurrence of the external cause; Z79.4 Long term (current) use of insulin; Z53.09 Procedure and treatment not carried out because of other contraindication
CPT/HCPCS: 74176; 76705; 80048; 80053; 82550; 82552; 82948; 83690; 84484; 85002; 85025; 85610; 85730; 92928; 93005; 93458; 96361; 96374; 96375; 99152; 99153; C1725; C1760; C1769; C1887; C1893; G0269; J0780; J1644; J1815; J2250; J2270; J2405; J3010; J7030; J7040; Q9967